=== PATIENT | female | born 1945 | race Caucasian/White ===

== ENCOUNTER 2017-12-18 11:37 | Emergency (ER) | payer MEDICARE, OTHER ==
[2017-12-18] MEDS: Sodium Chloride 0.9% 1,000 ML IV SCH (13:38)
[2017-12-18] MEDS: Aspirin 81 MG Tab.Chew PO ONE (13:42)
[2017-12-18] MEDS: Sodium Chloride 0.9% 1,000 ML ONE (13:43)
--- NOTE | 2017-12-18 13:44 | EDM.PDOC ---
ED HPI GENERAL MEDICAL PROBLEM - General Chief Complaint: General Stated Complaint: N/V/D for 3 days, dizziness Time Seen by Provider: 12/18/17 12:15 Source of Information: Reports: Patient, EMS History Limitations: Reports: No Limitations - History of Present Illness INITIAL COMMENTS - FREE TEXT/NARRATIVE: States that Thursday - Thursday she just didn't feel good but nothing specific. Thursday she started to feel SOB and then and Thursday it was worse and she was more SOB and had emesis both days. Today she felt the worst so called ambulance as she became very dizzy and lightheaded with diaphoresis. Denied any chest pain with this. No edema. Denies any cough or fever. Did feel cold. Onset: Gradual Location: Reports: Generalized Associated Symptoms: Reports: Diaphoresis, Loss of Appetite, Nausea/Vomiting, Shortness of Breath, Weakness. Denies: Chest Pain, Cough, Fever/Chills - Related Data Allergies Allergy/AdvReac Type Severity Reaction Status Date / Time No Known Allergies Allergy Verified 12/18/17 11:49 Home Meds: Home Meds Aspirin [Adult Low Dose Aspirin EC] 81 mg DAILY 12/18/17 [History] Losartan/Hydrochlorothiazide [Losartan-HCTZ 100-25 MG] 1 each PO DAILY 12/18/17 [History] Metoprolol Tartrate 50 mg PO BID 12/18/17 [History] amLODIPine Besylate [Amlodipine Besylate] 10 mg PO DAILY 12/18/17 [History] Past Medical History HEENT History: Reports: Cataract Cardiovascular History: Reports: Hypertension Respiratory History: Reports: None Gastrointestinal History: Reports: None Musculoskeletal History: Reports: None Endocrine/Metabolic History: Reports: Diabetes, Type II (was told that she is prediabetic) - Past Surgical History Female Surgical History: Reports: D&C, Hysterectomy Other Female Surgeries/Procedures: Bladder surgery Social & Family History - Tobacco Use Smoking Status *Q: Never Smoker Second Hand Smoke Exposure: No - Living Situation & Occupation Living situation: Reports: , Alone Occupation: Retired ED ROS GENERAL - Review of Systems Review Of Systems: See Below Constitutional: Reports: Weakness, Decreased Appetite. Denies: Fever, Chills HEENT: Reports: No Symptoms Respiratory: Reports: Shortness of Breath. Denies: Cough Cardiovascular: Denies: Chest Pain, Edema GI/Abdominal: Reports: Vomiting. Denies: Abdominal Pain, Diarrhea : Reports: No Symptoms Musculoskeletal: Reports: No Symptoms Skin: Reports: No Symptoms Neurological: Reports: No Symptoms Psychiatric: Reports: No Symptoms ED EXAM, GENERAL - Physical Exam Exam: See Below Exam Limited By: No Limitations General Appearance: Alert, Mild Distress Ears: Normal External Exam, Normal Canal, Normal TMs Nose: Normal Inspection Throat/Mouth: Normal Inspection, Normal Oropharynx, No Airway Compromise Head: Atraumatic Neck: Normal Inspection, Supple, Non-Tender, Full Range of Motion Respiratory/Chest: Lungs Clear, Normal Breath Sounds Cardiovascular: Normal Peripheral Pulses, Regular Rate, Rhythm, No Edema GI/Abdominal: Normal Bowel Sounds, Soft, Non-Tender Extremities: Normal Inspection, Non-Tender, No Pedal Edema, Normal Capillary Refill Neurological: Alert, Oriented Skin Exam: Dry, Cool Course - Vital Signs Last Recorded V/S: Last Vital Signs Temp 95.7 F 12/18/17 11:40 Pulse 105 H 12/18/17 11:40 Resp 16 12/18/17 11:40 BP 97/62 12/18/17 11:40 Pulse Ox 98 12/18/17 11:40 - Orders/Labs/Meds Orders: Active Orders 24 hr Category Date Time Status Chest 1V Frontal [CR] Routine Exams 12/18/17 Taken UA W/MICROSCOPIC [URIN] Stat Lab 12/18/17 12:16 Received Sodium Chloride 0.9% [Normal Saline] 1,000 ml Med 12/18/17 13:45 Active IV ASDIRECTED Medication Orders Sodium Chloride (Normal Saline) 1,000 mls @ 75 mls/hr IV ASDIRECTED DEEP Last Admin: 12/18/17 13:38 Dose: 75 mls/hr Labs: Laboratory Tests 12/18/17 12/18/17 Range/Units 12:16 12:16 WBC 15.0 H (5.0-10.0) 10^3/uL RBC 5.01 (4.00-5.50) 10^6/uL Hgb 14.4 (12.0-16.0) g/dL Hct 43.8 (37.0-47.0) % MCV 87.4 (82.0-94.0) fL MCH 28.7 (27.0-32.0) pg MCHC 32.9 L (33.0-38.0) g/dL RDW Coeff of Emelia 13.6 (11.0-15.0) % Plt Count 257 (150-400) 10^3/uL Neut % (Auto) 79.2 (35-85) % Lymph % (Auto) 13.2 (10-55) % Maries % (Auto) 7.4 (0-16) % Eos % (Auto) 0.1 (0-5) % Baso % (Auto) 0.1 (0-3) % Neut # (Auto) 11.90 H (1.80-7.00) 10^3/uL Lymph # (Auto) 1.99 (1.00-4.80) 10^3/uL Maries # (Auto) 1.11 H (0.00-0.80) 10^3/uL Eos # (Auto) 0.01 (0.00-0.45) 10^3/uL Baso # (Auto) 0.02 10^3/uL Sodium 137 (136-145) mEq/L Potassium 3.8 (3.5-5.0) mEq/L Chloride 100 (98-106) mEq/L Carbon Dioxide 22 (21-32) mmol/L BUN 40 H D (7-18) mg/dL Creatinine 2.0 H D (0.6-1.0) mg/dL Est Cr Clr Drug Dosing 24.89 mL/min Estimated GFR (MDRD) 24 L (>=60) mL/min Glucose 287 H D (75-99) mg/dL Calcium 9.2 (8.4-10.1) mg/dL Total Bilirubin 0.6 (0.0-1.0) mg/dL AST 43 H (15-37) U/L ALT 52 (12-78) U/L Alkaline Phosphatase 87 (46-116) U/L Lactate Dehydrogenase 208 H (100-190) U/L Creatine Kinase 53 (21-215) U/L Troponin I 0.617 H (0.00-0.06) ng/mL C-Reactive Protein 10.0 H (0.2-0.8) mg/dL Total Protein 7.1 (6.4-8.2) g/dL Albumin 3.4 (3.4-5.0) g/dL Meds: Medications Generic Name Dose Route Start Last Admin Trade Name Brayan PRN Reason Stop Dose Admin Sodium Chloride 1,000 mls @ 75 mls/hr 12/18/17 13:45 12/18/17 13:38 Normal Saline IV 75 mls/hr ASDIRECTED DEEP Administration Discontinued Medications Generic Name Dose Route Start Last Admin Trade Name Brayan PRN Reason Stop Dose Admin Aspirin 324 mg 12/18/17 13:36 Aspirin PO 12/18/17 13:37 ONETIME ONE Sodium Chloride Confirm 12/18/17 13:25 Normal Saline Administered 12/18/17 13:26 Dose 1,000 mls @ as directed .ROUTE .[facility] - Re-Assessments/Exams Free Text/Narrative Re-Assessment/Exam: 12/18/17 1320 Reviewed the EKG and labs with Dr. Gallegos who feels that the changes are acute and recommended cardiology consult due to her hypotension, elevated troponin and EKG changes. 12/18/17 13:30 discussed elevated Troponin and EKG changes with Dr. Ortega cardiology at [facility] 12/18/17 13:48 discussed labs and pt with Dr. Benito hospitalist at [facility]. He will accept in transfer Will transfer with IV fluids and ALS transfer is being arranged. Departure - Departure Time of Disposition: 13:57 Disposition: DC/Tfer to [facility] 02 Condition: Fair Clinical Impression: NM, Myocardial infarction Hypotension Qualifiers: Hypotension type: other hypotension type Qualified Code(s): I95.89 - Other hypotension - Discharge Information Additional Instructions: Transfer ALS to [facility] with Dr. Benito accepting Will go with IV NS, cardiac monitoring, and monitoring VS closely - Problem List & Annotations (1) Hypotension SNOMED Code(s): 61413403 Code(s): I95.9 - HYPOTENSION, UNSPECIFIED Status: Acute Qualifiers: Hypotension type: other hypotension type Qualified Code(s): I95.89 - Other hypotension (2) NM, Myocardial infarction SNOMED Code(s): 60865311 Code(s): I21.9 - ACUTE MYOCARDIAL INFARCTION, UNSPECIFIED Status: Acute - Problem List Review Problem List Initiated/Reviewed/Updated: Yes - My Orders Last 24 Hours: My Active Orders 12/18/17 Chest 1V Frontal [CR] Routine 12/18/17 12:16 UA W/MICROSCOPIC [URIN] Stat 12/18/17 13:45 Sodium Chloride 0.9% [Normal Saline] 1,000 ml IV ASDIRECTED - Assessment/Plan Last 24 Hours: My Active Orders 12/18/17 Chest 1V Frontal [CR] Routine 12/18/17 12:16 UA W/MICROSCOPIC [URIN] Stat 12/18/17 13:45 Sodium Chloride 0.9% [Normal Saline] 1,000 ml IV ASDIRECTED
== END 2017-12-18 14:30 ==
LOC: CC.ED 11:37
DX: I21.9 Acute myocardial infarction, unspecified (principal); I95.89 Other hypotension; I10 Essential (primary) hypertension; E11.9 Type 2 diabetes mellitus without complications; Z79.82 Long term (current) use of aspirin; Z79.899 Other long term (current) drug therapy
CPT/HCPCS: 36415; 71045; 80053; 81001; 82550; 83615; 84484; 85025; 86140; 93005; 96360; 99285; A9270-GY; J7030

== ENCOUNTER 2024-04-20 00:46 | Emergency (ER) | payer MEDICARE, OTHER ==
[2024-04-20] MEDS: Take Home: Cyclobenzaprine 10 MG Tab, 4 Tab Pack PO ONE (01:24)
== END 2024-04-20 01:40 | disposition home or self-care (01) ==
LOC: CC.ED 00:46
DX: M62.831 Muscle spasm of calf (principal); I10 Essential (primary) hypertension; E78.00 Pure hypercholesterolemia, unspecified; E11.9 Type 2 diabetes mellitus without complications; Z90.710 Acquired absence of both cervix and uterus; Z79.82 Long term (current) use of aspirin; Z79.899 Other long term (current) drug therapy
CPT/HCPCS: 99283; A9270-GY